=== PATIENT | female | born 1975 | race Caucasian/White ===

== ENCOUNTER 2019-09-17 20:04 | Inpatient (IN) | payer BC ==
[2019-09-17 21:06] LABS: Hematocrit 41 % (35-47); Hemoglobin 14.2 g/dL (12.0-16.0); Mean Corpuscular HGB Conc 35 g/dL (31-36); Mean Corpuscular Hemoglobin 33 pg (27-31); Mean Corpuscular Volume 94 fL (80-97); Red Blood Count 4.35 10^6 /uL (3.70-4.87); Red Cell Distribution Width 13 % (10-15); White Blood Count 6.1 10^3/uL (3.5-10.8)
[2019-09-17 21:08] LABS: ALT 13 U/L (7-52); Albumin 4.7 g/dL (3.2-5.2); Alkaline Phosphatase 39 U/L (34-104); BUN/Creatinine Ratio 11.8 (8-20); Blood Urea Nitrogen 9 mg/dL (6-24); CO2 Carbon Dioxide 24 mmol/L (22-32); Calcium 9.2 mg/dL (8.6-10.3); Chloride 106 mmol/L (101-111); EGFR Non-African American 83.5 (>60); Globulin 2.4 g/dL (2-4); Glucose 93 mg/dL (70-100); Sodium 137 mmol/L (135-145); Total Protein 7.1 g/dL (6.4-8.9)
[2019-09-17 21:10] LABS: Platelet Count 11 10^3/uL (150-450)
[2019-09-17 21:15] LABS: HCG Pregnancy < 0.60 mIU/mL
[2019-09-17 21:19] LABS: AST 19 U/L (13-39); Anion Gap 7 mmol/L (2-11)
[2019-09-17 21:22] LABS: ABS Eosinophils 0.1 10^3/ul (0-0.6); ABS Lymphocytes 1.9 10^3/ul (1.0-4.8); ABS Monocytes 0.4 10^3/ul (0-0.8); ABS Neutrophils 3.6 10^3/ul (1.5-7.7); Eosinophil % 1.9 %; Lymphocyte % 31.7 %; Nucleated Red Blood Cells % 0.1
[2019-09-17] MEDS ORDERED: IMMUNE GLOBULN IV ONE (23:47)
[2019-09-17] MEDS ORDERED: Acetaminophen TAB* 325 MG PO ONE (23:48)
[2019-09-17] MEDS ORDERED: Lactated Ringers 1000 ML Bag* 1,000 ML IV ONE (23:48)
[2019-09-17] MEDS ORDERED: Dexamethasone IV* 4 MG/ML 5 ML VIAL (20 MG) IVPB ONE (23:48)
[2019-09-18] MEDS ORDERED: diPHENhydraMINE IV* 50 MG/ML 1 ml VIAL (BENADRYL) IV ONE (00:14)
--- NOTE | 2019-09-18 02:28 | ED ---
Complex/Multi-Sys Presentation - HPI Summary HPI Summary: Patient is a 43 y/o F w/ Hx of ITP who presents to [facility] with spontaneous bruising and low platelet count. Patient had called her PCP about having noticed spontaneous bruising today, 09/17/19. She had bloodwork done, was called later in the day and informed that her platelet count was 8. Patient was subsequently sent to [facility] for evaluation. She reports that she has had an intermittent STREET since two days ago but denies dizziness and changes in vision. No recent trauma or injuries reported. Patient notes that she had ITP previously when she was placed on Sertaline and states that she had just recently started fluoxetine. On triage, pain is denied, nothing is noted to aggravate/alleviate Sx. Home medications and allergies are reviewed. - History Of Current Complaint Chief Complaint: EDGeneral Time Seen by Provider: 09/17/19 23:29 Hx Obtained From: Patient Onset/Duration: Still Present Timing: Constant Severity Currently: None - pain denied at present Location: Pain At: - head Aggravating Factor(s): nothing Alleviating Factor(s): nothing Associated Signs And Symptoms: Positive: Headache, Other - positive - spontaneous bruising; negative - changes in vision. Negative: Dizziness - Allergies/Home Medications Allergies/Adverse Reactions: Allergies Allergy/AdvReac Type Severity Reaction Status Date / Time ciprofloxacin [From Cipro] Allergy Hives Verified 09/17/19 20:06 Home Medications: Home Medications FLUoxetine CAP* [PROzac CAP*] 20 mg PO DAILY 09/18/19 [History Confirmed ] OXcarbazepine TAB(*) [Trileptal 300 mg TAB(*)] 300 mg PO BEDTIME 09/18/19 [ History Confirmed 09/18/19] PMH/Surg Hx/FS Hx/Imm Hx Endocrine/Hematology History: Reports: Other Endocrine/Hematological Disorders - ITP Sensory History: Denies: Hx Legally Blind Opthamlomology History: Denies: Hx Legally Blind EENT History: Denies: Hx Deafness Psychiatric History: Reports: Hx Depression Infectious Disease History: No Infectious Disease History: Denies: Traveled Outside the [place] in Last 30 Days - Family History Known Family History: Negative: Diabetes - Social History Alcohol Use: None Substance Use Type: Reports: None Smoking Status (MU): Never Smoked Tobacco Review of Systems ENT: Other - negative - changes in vision Skin: Other - positive - spontaneous bruising Neurological: Other - negative - dizziness Positive: Headache All Other Systems Reviewed And Are Negative: Yes Physical Exam - Summary Physical Exam Summary: Constitutional: Well-developed, Well-nourished, Alert. (-) Distressed Skin: Warm, Dry; there is a 3-4 circular hematoma with surrounding ecchymosis at the lateral aspect of the left thigh, a 4 cm healing ecchymosis distal to the lateral lower left leg, and scant petechiae across trunk and back HENT: Normocephalic; Atraumatic Eyes: Conjunctiva normal Neck: Musculoskeletal ROM normal neck. (-) JVD, (-) Stridor, (-) Tracheal deviation Cardio: Rhythm regular, rate normal, Heart sounds normal; Intact distal pulses; The pedal pulses are 2+ and symmetric. Radial pulses are 2+ and symmetric. Pulmonary/Chest wall: Effort normal. (-) Respiratory distress, (-) Wheezes, (-) Rales Abd: Soft, (-) tenderness, (-) Distension, (-) Guarding, (-) Rebound Musculoskeletal: (-) Edema Neuro: Alert, Oriented x3, no focal deficits, she is neurologically intact, GCS 15. Psych: Mood and affect Normal Triage Information Reviewed: Yes Vital Signs On Initial Exam: Initial Vitals Temp Pulse Resp BP Pulse Ox 96.7 F 84 18 136/89 98 09/17/19 20:07 09/17/19 20:07 09/17/19 20:07 09/17/19 20:07 09/17/19 20:07 Vital Signs Reviewed: Yes Procedures - Sedation Patient Received Moderate/Deep Sedation with Procedure: No Diagnostics - Vital Signs Vital Signs Temp Pulse Resp BP Pulse Ox 09/18/19 02:08 98.2 F 09/18/19 02:05 75 20 113/78 97 09/18/19 02:00 78 20 97 09/18/19 01:51 97.9 F 09/18/19 01:50 72 20 114/68 97 09/18/19 01:35 81 15 114/70 96 09/18/19 01:34 98.4 F 09/18/19 01:21 98.1 F 09/18/19 01:20 73 20 119/74 99 09/18/19 01:05 78 20 115/77 100 10/31/19 01:00 98.2 F 72 19 98 09/18/19 00:38 75 15 124/100 100 09/18/19 00:23 65 19 98 09/18/19 00:08 17 118/85 09/18/19 00:00 70 15 98 09/17/19 23:38 62 19 111/72 99 09/17/19 23:10 71 19 98 09/17/19 23:08 80 22 116/89 99 09/17/19 22:13 97.9 F 77 18 133/89 98 09/17/19 20:07 96.7 F 84 18 136/89 98 - Laboratory Lab Results: Lab Results 09/17/19 09/17/19 09/17/19 Range/Units 20:38 20:38 20:38 WBC 6.1 (3.5-10.8) 10^3/uL RBC 4.35 (3.70-4.87) 10^6 /uL Hgb 14.2 (12.0-16.0) g/dL Hct 41 (35-47) % MCV 94 (80-97) fL MCH 33 H (27-31) pg MCHC 35 (31-36) g/dL RDW 13 (10-15) % Plt Count 11 L* (150-450) 10^3/uL MPV 9.0 (7.4-10.4) fL Neut % (Auto) 58.6 % Lymph % (Auto) 31.7 % [place] % (Auto) 7.2 % Eos % (Auto) 1.9 % Baso % (Auto) 0.6 % Absolute Neuts (auto) 3.6 (1.5-7.7) 10^3/ul Absolute Lymphs (auto) 1.9 (1.0-4.8) 10^3/ul Absolute Monos (auto) 0.4 (0-0.8) 10^3/ul Absolute Eos (auto) 0.1 (0-0.6) 10^3/ul Absolute Basos (auto) 0.0 (0-0.2) 10^3/ul Absolute Nucleated RBC 0.0 10^3/ul Nucleated RBC % 0.1 Hem Pathologist Commnt Pending Sodium 137 (135-145) mmol/L Potassium 4.0 (3.5-5.0) mmol/L Chloride 106 (101-111) mmol/L Carbon Dioxide 24 (22-32) mmol/L Anion Gap 7 (2-11) mmol/L BUN 9 (6-24) mg/dL Creatinine 0.76 (0.51-0.95) mg/dL Est GFR ( Amer) 101.0 (>60) Est GFR (Non-Af Amer) 83.5 (>60) BUN/Creatinine Ratio 11.8 (8-20) Glucose 93 (70-100) mg/dL Calcium 9.2 (8.6-10.3) mg/dL Total Bilirubin 0.40 (0.2-1.0) mg/dL AST 19 (13-39) U/L ALT 13 (7-52) U/L Alkaline Phosphatase 39 (34-104) U/L Total Protein 7.1 (6.4-8.9) g/dL Albumin 4.7 (3.2-5.2) g/dL Globulin 2.4 (2-4) g/dL Albumin/Globulin Ratio 2.0 (1-3) Beta HCG, Quant < 0.60 mIU/mL Blood Type A Positive Antibody Screen Negative Result Diagrams: 09/17/19 20:38 09/17/19 20:38 Lab Statement: Any lab studies that have been ordered have been reviewed, and results considered in the medical decision making process. Complex Multi-Symp Course/Dx Course Of Treatment: Patient is a 43 y/o F w/ Hx of ITP who presents to [facility] with spontaneous bruising and low platelet count. Patient had called her PCP about having noticed spontaneous bruising today, 09/17/19. She had bloodwork done, was called later in the day and informed that her platelet count was 8. Patient was subsequently sent to [facility] for evaluation. She reports that she has had an intermittent STREET since two days ago but denies dizziness and changes in vision. No recent trauma or injuries reported. Skin: Warm, Dry; there is a 3-4 circular hematoma with surrounding ecchymosis at the lateral aspect of the left thigh, a 4 cm healing ecchymosis distal to the lateral lower left leg, and scant petechiae across trunk and back. Neuro: Alert, Oriented x3, no focal deficits, she is neurologically intact, GCS 15. Bloodwork was obtained in ED. Plt count was 11. Patients case was discussed with Dr. Tejeda, who recommended IG IV and decadron. During ED course, patient received IG 60 gm in IV, 600 mls @ 18 mls/hr, Tylenol 975 mg PO, Decadron 40 mg IVPB, Benadryl 25 mg IV, lactated ringers 1 L. Patient's case was discussed with Dr. Keene, Dr. Keene accepts for admission. - Diagnoses Provider Diagnoses: Acute ITP - Physician Notifications Discussed Care Of Patient With: Rachel Keene Time Discussed With Above Provider: 01:39 Instructed by Provider To: Other - 2338 - Patients case was discussed with Dr. Tejeda, who recommended IG IV and decadron. 0139 - Patient's case was discussed with Dr. Keene, Dr. Keene accepts for admission. Discharge ED - Sign-Out/Discharge Documenting (check all that apply): Patient Departure - admit - Discharge Plan Condition: Fair Disposition: ADMITTED TO [facility] - Billing Disposition and Condition Condition: FAIR Disposition: Admitted to [facility] - Attestation Statements Document Initiated by Leahibe: Yes Documenting Scribe: KEYLA PRIDE Provider For Whom Ginae is Documenting (Include Credential): MATHEUS NGUYEN MD Scribe Attestation: IKEYLA, scribed for MATHEUS NGUYEN MD on 09/18/19 at 0728. Scribe Documentation Reviewed: Yes Provider Attestation: The documentation as recorded by the KEYLA bañuelos accurately reflects the service I personally performed and the decisions made by me, MATHEUS NGUYEN MD Status of Scribe Document: Viewed
--- NOTE | 2019-09-18 05:47 | HP ---
CC: Dr. Dukes; Dr. Tejeda * HISTORY AND PHYSICAL: DATE OF ADMISSION: 09/18/19 PRIMARY CARE PROVIDER: Dr. Dukes. STRIP CATCHER: Dr. Tejeda. CHIEF COMPLAINT: Left thigh bruise. HISTORY OF PRESENT ILLNESS: Ms. Ramesh is a 43-year-old female, who has a history of ITP approximately 1 year ago, who at approximately 6:30 p.m. on the night prior to admission noted a bruise on her left posterior thigh. She then around 7 p.m. noticed petechiae starting to pop up on her limbs. She recognized the constellation of findings and felt these were similar to how she presented last year when she was diagnosed with ITP and presented to the emergency room. In the ER, the patient had a bloody bowel movement. The patient also noted that she was bleeding from her oral mucosa. Of note, the patient was started back on fluoxetine approximately 4 weeks ago. Last year, there was concern that fluoxetine was a cause of her ITP as it had been started just 3 weeks prior. She was told to stay off of this; however, that did not happen. PAST MEDICAL HISTORY: 1. ITP. 2. Depression. 3. Migraines. PAST SURGICAL HISTORY: 1. Right shoulder repair. 2. Tonsillectomy. MEDICATIONS: 1. Fluoxetine 20 mg p.o. daily. 2. Trileptal 300 mg p.o. at bedtime. ALLERGIES: CIPRO. FAMILY HISTORY: Dad is living; he is 64 and healthy. Mom is living; she is 64 and has hypertension and hypothyroidism. The patient has 2 children, one of whom has MS. SOCIAL HISTORY: The patient does not smoke. She drinks alcohol on occasion. She previously worked as an [employer] but currently is staying home with her grand baby. She is . She has 2 children. REVIEW OF SYSTEMS: The patient admits to chills and poor appetite. She states that she has felt as if her heart has been pounding over the last couple of days. She admits to cough and nausea. All of these symptoms were present last year when she developed the ITP. She has no shortness of breath. She has no abdominal pain. She has no diarrhea or constipation as above; however, she did have a bloody bowel movement. No focal weakness or sensory loss. No hematuria. No dysuria. No sudden changes in vision. No dysphagia. No joint pains or muscle pains out of the ordinary. She did note the petechial rash. No anxiety or depression acutely. PHYSICAL EXAMINATION GENERAL: The patient is a well-developed middle-aged female seen sitting up on the stretcher, in no acute distress. VITAL SIGNS: Blood pressure 109/71, pulse 71, respirations 21, temp 98.7, O2 sat 97% on room air. HEENT: Pupils are equal and round. Extraocular muscles are intact. Oropharynx is moist. There is a small submucosal hematoma on the right buccal surface. NECK: There is no submandibular, cervical or supraclavicular adenopathy. PULMONARY: Lungs are clear to auscultation bilaterally. CARDIAC: Normal S1, S2. Regular rate and rhythm. I do not appreciate any murmurs. ABDOMEN: Bowel sounds present. Abdomen is soft, nontender, nondistended. MUSCULOSKELETAL: The patient moves all 4 extremities symmetrically. SKIN: Warm and dry. She has a deep purple hard bruise through the left posterior thigh. This is about half-dollar sized. There are other scattered fainter bruises on the bilateral legs. There is a petechial rash noted scattered across the patient's body. NEURO: Cranial nerves II through XII are grossly intact. Sensation is intact to light touch throughout. Strength is 5/5 and symmetric in both upper and lower extremities bilaterally. PSYCH: The patient is alert. She is oriented x3. Affect appears appropriate. LABORATORY DATA: WBC 6.1, hemoglobin 14.2, hematocrit 41, platelets 11. Sodium 137, potassium 4.0, chloride 106, CO2 of 24, BUN 9, creatinine 0.76, glucose 93, calcium 9.2. Bilirubin 0.4, AST 19, ALT 13, alk phos 39. Albumin 4.7. ASSESSMENT AND PLAN: Ms. Ramesh is a 43-year-old female, who had an episode of immune thrombocytopenic purpura approximately 1 year ago, who presented to the emergency room with complaints of bruising on her legs and petechial rash. 1. Acute immune thrombocytopenic purpura - possibly drug induced. The patient last year developed acute immune thrombocytopenic purpura approximately 3 weeks after initiating fluoxetine. It was Dr. Tejeda's recommendation that she stay off this medication indefinitely. For some reason, this was restarted about 4 weeks ago. I am suspicious that this may be the precipitant to her developing immune thrombocytopenic purpura. She will need to remain off of fluoxetine. Dr. Lowry in the emergency room spoke with Dr. Tejeda, who recommended administering Decadron 40 mg IV daily x4 days and IVIG 1 g/kg x2 doses 24 hours apart. The patient has started these treatments in the emergency room. Followup CBC will be obtained at 6 a.m. 2. Depression. The patient is being taken off her fluoxetine. I am not going to restart any antidepressants at this time 3. Migraines. I am going to hold the patient's Trileptal. 4. DVT prophylaxis. According to the Adult Thrombosis Prophylaxis Risk Factor Assessment Guide, the patient has a total risk factor score of 1, making her low risk. Ambulation will be utilized as DVT prophylaxis. 5. Code status is full. TIME SPENT: Fifty-five minutes were spent admitting this patient. [id number]/[facility] #: [id number] MTDD
[2019-09-18 09:51] LABS: Hematocrit 39 % (35-47); Hemoglobin 13.1 g/dL (12.0-16.0); Mean Corpuscular HGB Conc 34 g/dL (31-36); Mean Corpuscular Hemoglobin 32 pg (27-31); Mean Corpuscular Volume 95 fL (80-97); Platelet Count < 3 10^3/uL (150-450); Red Blood Count 4.11 10^6 /uL (3.70-4.87); Red Cell Distribution Width 13 % (10-15); White Blood Count 4.3 10^3/uL (3.5-10.8)
--- NOTE | 2019-09-18 10:19 | PN ---
Progress Note - Progress Note Date of Service: 09/18/19 SOAP: Subjective: []Admitted overnight with recurrent ITP in the setting of resuming Fluoxetine. Started on IVIg and IV Dex. Feeling fine this AM. Did have a bloody nose overnight and small amt. of blood when wiped this AM but not active bleeding stool or urine. Petechaie better. Medications: Acetaminophen (Tylenol Tab*) 650 mg PO Q4H PRN PRN Reason: PAIN - MILD Immune Globulin 60 gm/ IV (Solution) 600 mls @ 18 mls/hr IV ONCE ONE; Protocol Stop: 09/19/19 09:06 Last Admin: 09/18/19 01:01 Dose: 18 mls/hr Immune Globulin 60 gm/ IV (Solution) 600 mls @ 0 mls/hr IV ONCE ONE; Protocol Stop: 09/19/19 01:01 Dexamethasone Sodium Phosphate (40 mg/ Sodium Chloride) 260 mls @ 260 mls/hr IVPB 2100 KIMO Stop: 09/20/19 21:59 Objective: [] Vital Signs Temp Pulse Resp BP Pulse Ox 97.7 F 76 16 109/67 98 09/18/19 08:10 09/18/19 08:10 09/18/19 08:10 09/18/19 08:10 09/18/19 08:10 A&Ox3, EOMI, grossly non-focal HRR, S1S2 LS clear bilat throughout with even and non-labored resp. +BS, soft and non-tender +PP=bilat., no edema Scattered petechaie, minimal Left upper thigh with ~3 cm dark purple bruise Laboratory Results - last 24 hr 09/17/19 09/17/19 09/17/19 20:38 20:38 20:38 WBC 6.1 RBC 4.35 Hgb 14.2 Hct 41 MCV 94 MCH 33 H MCHC 35 RDW 13 Plt Count 11 L* MPV 9.0 Neut % (Auto) 58.6 Lymph % (Auto) 31.7 [place] % (Auto) 7.2 Eos % (Auto) 1.9 Baso % (Auto) 0.6 Absolute Neuts (auto) 3.6 Absolute Lymphs (auto) 1.9 Absolute Monos (auto) 0.4 Absolute Eos (auto) 0.1 Absolute Basos (auto) 0.0 Absolute Nucleated RBC 0.0 Nucleated RBC % 0.1 Hem Pathologist Commnt Sodium 137 Potassium 4.0 Chloride 106 Carbon Dioxide 24 Anion Gap 7 BUN 9 Creatinine 0.76 Est GFR ( Amer) 101.0 Est GFR (Non-Af Amer) 83.5 BUN/Creatinine Ratio 11.8 Glucose 93 Calcium 9.2 Total Bilirubin 0.40 AST 19 ALT 13 Alkaline Phosphatase 39 Total Protein 7.1 Albumin 4.7 Globulin 2.4 Albumin/Globulin Ratio 2.0 Beta HCG, Quant < 0.60 Blood Type A Positive Antibody Screen Negative 09/18/19 08:48 WBC 4.3 RBC 4.11 Hgb 13.1 Hct 39 MCV 95 MCH 32 H MCHC 34 RDW 13 Plt Count < 3 L* D MPV Neut % (Auto) Lymph % (Auto) [place] % (Auto) Eos % (Auto) Baso % (Auto) Absolute Neuts (auto) Absolute Lymphs (auto) Absolute Monos (auto) Absolute Eos (auto) Absolute Basos (auto) Absolute Nucleated RBC Nucleated RBC % Hem Pathologist Commnt Sodium Potassium Chloride Carbon Dioxide Anion Gap BUN Creatinine Est GFR ( Amer) Est GFR (Non-Af Amer) BUN/Creatinine Ratio Glucose Calcium Total Bilirubin AST ALT Alkaline Phosphatase Total Protein Albumin Globulin Albumin/Globulin Ratio Beta HCG, Quant Blood Type Antibody Screen Assessment: []43 yo female with recurrent ITP now receiving IVIg and dex., expect response over next 24 hours. Plan: []- IVIg 1 g/kg x2 q24hrs (day 2 tonight) - IV Dex 40 g x4 days (day 2 of 4 today) - repeat H&H this afternoon d/t bloody stool yesterday - CBC in AM
[2019-09-18] MEDS: Acetaminophen TAB* 325 MG PO PRN ×2 (13:55→20:32)
[2019-09-18 15:05] LABS: Hematocrit 37 % (35-47); Hemoglobin 12.4 g/dL (12.0-16.0)
[2019-09-18 18:48] LABS: Mean Platelet Volume 11.1 fL (7.4-10.4); Platelet Count 4 10^3/uL (150-450)
[2019-09-18] MEDS ORDERED: diPHENhydraMINE PO* 50 MG PO ONE (18:56)
[2019-09-18] MEDS ORDERED: diPHENhydraMINE PO* 25 MG PO ONE (18:56)
[2019-09-18] MEDS: OXcarbazepine TAB(*) 300 MG PO SCH (20:32)
[2019-09-18] MEDS ORDERED: NS 0.9% IVPB SCH (21:00)
[2019-09-18] MEDS ORDERED: DEXAMETHASONE IVPB SCH (21:00)
[2019-09-18] MEDS ORDERED: IMMUNE GLOBULIN 10 GM/100 ML IV ONE (23:00)
[2019-09-18] MEDS ORDERED: Dexamethasone IV* 4 MG/ML 5 ML VIAL (20 MG) IVPB SCH (23:45)
[2019-09-19] MEDS ORDERED: IMMUNE GLOBULN IV ONE (01:00)
[2019-09-19] MEDS: Acetaminophen TAB* 325 MG PO PRN ×2 (03:32→12:41)
[2019-09-19 05:04] LABS: Hematocrit 34 % (35-47); Hemoglobin 11.4 g/dL (12.0-16.0); Mean Corpuscular HGB Conc 34 g/dL (31-36); Mean Corpuscular Hemoglobin 32 pg (27-31); Mean Corpuscular Volume 95 fL (80-97); Red Blood Count 3.59 10^6 /uL (3.70-4.87); Red Cell Distribution Width 13 % (10-15); White Blood Count 8.3 10^3/uL (3.5-10.8)
[2019-09-19 05:32] LABS: ABS Lymphocytes 0.4 10^3/ul (1.0-4.8); ABS Monocytes 0.2 10^3/ul (0-0.8); ABS Neutrophils 8.7 10^3/ul (1.5-7.7); Lymphocyte % 4.8 %; Mean Platelet Volume 9.7 fL (7.4-10.4); Nucleated Red Blood Cells % 0.1; Platelet Count 4 10^3/uL (150-450)
--- NOTE | 2019-09-19 08:13 | PN ---
Progress Note - Progress Note Date of Service: 09/19/19 SOAP: Subjective: []Still nose bleeds,still bruising. Last time plts alexey on D3. Tolerated IVIG. Had STREET last night, BL frontal, no associated symptoms. Resolved with Tylenol and Dex. Had 1 U Plts last night, no effect. blood in stool. Decrease in plts on both events occurred one week after starting SSRI Acetaminophen (Tylenol Tab*) 650 mg PO Q4H PRN PRN Reason: PAIN - MILD Last Admin: 09/19/19 03:32 Dose: 650 mg Immune Globulin 60 gm/ IV (Solution) 600 mls @ 18 mls/hr IV ONCE ONE; Protocol Stop: 09/19/19 09:06 Last Admin: 09/18/19 01:01 Dose: 18 mls/hr Dexamethasone Sodium Phosphate (40 mg/ Sodium Chloride) 260 mls @ 260 mls/hr IVPB 2100 KIMO Stop: 09/20/19 21:59 Last Admin: 09/18/19 20:32 Dose: 260 mls/hr Immune Globulin (Gammagard Liquid 10% - 10 Gm) 600 mls @ 31 mls/hr IV ONCE ONE ; Protocol Stop: 09/19/19 18:21 Last Admin: 09/19/19 03:26 Dose: 31 mls/hr Oxcarbazepine (Trileptal Tab(*)) 300 mg PO BEDTIME KIMO Last Admin: 09/18/19 20:32 Dose: 300 mg Objective: [] Vital Signs Temp Pulse Resp BP Pulse Ox 97.7 F 77 16 121/63 98 09/19/19 06:17 09/19/19 06:17 09/19/19 06:17 09/19/19 06:17 09/19/19 06:17 HEENT: OM moist, no blisters, cannot see nose bleed Neuro: CN 2-12 intact, AAOx3, normal speach, strength 5/5 CTA Tchy, RRR +BS +bruise on L hip no TYE Plts 4 Hgb 11.4, decreased Assessment: []43 yo female with recurrent ITP now receiving IVIg and dex. It is possible that SSRI through interaction with plts is trigger for ITP. Discussed therapy, expect rise in plts next 24 hrs, if not change can consider Nplate. Also discussed splenectomy, Rituximab as possibility after recovery. Plan: []- IVIg 1 g/kg x2 q24hrs completed 2. Dex 40 G IV x 4, day 3 tomorrow. Move infusion to [address] head 4. CBC in am 5. Will need psychiatrist input for treating depression w/o serotonin agent.
[2019-09-19] MEDS: OXcarbazepine TAB(*) 300 MG PO SCH (21:23)
[2019-09-20 07:16] LABS: ABS Lymphocytes 2.5 10^3/ul (1.0-4.8); ABS Monocytes 0.5 10^3/ul (0-0.8); ABS Neutrophils 4.3 10^3/ul (1.5-7.7); Eosinophil % 0.4 %; Hematocrit 33 % (35-47); Hemoglobin 11.7 g/dL (12.0-16.0); Mean Corpuscular HGB Conc 35 g/dL (31-36); Mean Corpuscular Hemoglobin 33 pg (27-31); Mean Corpuscular Volume 93 fL (80-97); Mean Platelet Volume 9.3 fL (7.4-10.4); Nucleated Red Blood Cells % 0.1; Platelet Count 3 10^3/uL (150-450); Red Blood Count 3.58 10^6 /uL (3.70-4.87); Red Cell Distribution Width 13 % (10-15); White Blood Count 7.3 10^3/uL (3.5-10.8)
[2019-09-20] MEDS ORDERED: Dexamethasone IV* 4 MG/ML 5 ML VIAL (20 MG) ONE (07:59)
[2019-09-20] MEDS ORDERED: Dexamethasone IV* 40 MG in NS 0.9% 50 ML* 50 ML IVPB SCH (09:00)
[2019-09-20] MEDS: Acetaminophen TAB* 325 MG PO PRN ×2 (09:01→20:26)
--- NOTE | 2019-09-20 16:10 | PN ---
Progress Note - Progress Note Date of Service: 09/20/19 SOAP: Subjective: [She is very anxious this morning. She and her are questioning whether transfer to a tertiary facility is necessary. She was able to sleep last night. She continues to have nose, mucosal bleed, blood in her urine and stool. ] Objective: [ Vital Signs: Temp Pulse Resp BP Pulse Ox 98 F 74 16 112/68 100 09/20/19 13:47 09/20/19 13:47 09/20/19 13:47 09/20/19 13:47 09/20/19 13:47 Exam: Gen: Anxious, but otherwise well appearing 43 yo female in NAD HEENT: MMM CV: RRR, no m/r/g Resp: CTA, no w/c/r Abd: soft and nonTTP Ext: no edema Skin: petechial rash and areas of ecchymosis] Assessment: [This is a 43 yo female with recurrent ITP. She is now day 3 of IVIG and dexamethasone without a response as of yet. ] Plan: [1. ITP - received 2 doses of IVIG and today is day 3 of dexamethasone - transfuse 1U plts today as she is actively bleeding and assess response - if no rise in plts by tomorrow will start with Nplate 2. Anxiety - exacerbated by high dose steroids - patient declined ativan - discussed her sources of anxiety in detail and assured her that she is receiving the standard in care for management of ITP Dispo: cont inpatient care ]
[2019-09-20] MEDS: OXcarbazepine TAB(*) 300 MG PO SCH (20:23)
[2019-09-20 20:34] LABS: Mean Platelet Volume 12.1 fL (7.4-10.4)
[2019-09-20 20:35] LABS: Platelet Count 3 10^3/uL (150-450)
[2019-09-21] MEDS: Acetaminophen TAB* 325 MG PO PRN ×2 (06:25→20:39)
[2019-09-21 06:54] LABS: ABS Lymphocytes 1.4 10^3/ul (1.0-4.8); ABS Monocytes 0.8 10^3/ul (0-0.8); ABS Neutrophils 8.2 10^3/ul (1.5-7.7); Hematocrit 34 % (35-47); Lymphocyte % 13.6 %; Mean Corpuscular HGB Conc 35 g/dL (31-36); Mean Corpuscular Hemoglobin 33 pg (27-31); Mean Corpuscular Volume 92 fL (80-97); Mean Platelet Volume 12.3 fL (7.4-10.4); Nucleated Red Blood Cells % 0.1; Red Blood Count 3.71 10^6 /uL (3.70-4.87); Red Cell Distribution Width 12 % (10-15); White Blood Count 10.5 10^3/uL (3.5-10.8)
[2019-09-21 07:04] LABS: Platelet Count 3 10^3/uL (150-450)
[2019-09-21] MEDS ORDERED: Dexamethasone IV* 40 MG in NS 0.9% 50 ML* 50 ML IVPB SCH (09:00)
[2019-09-21] MEDS ORDERED: ROMIPLOSTIM 250 MCG/0.5 ML SUBCUT ONE (10:00)
--- NOTE | 2019-09-21 10:02 | PN ---
Progress Note - Progress Note Date of Service: 09/21/19 SOAP: Subjective: [Feeling well. Developed vaginal bleeding, her menstrual period is generally light and would be due next week. Continues to see blood in her urine and stool with active nose bleed.] Objective: [ Vital Signs: Temp Pulse Resp BP Pulse Ox 98.0 F 91 20 138/85 98 09/21/19 07:23 09/21/19 07:23 09/21/19 07:23 09/21/19 07:23 09/21/19 07:23 Acetaminophen (Tylenol Tab*) 650 mg PO Q4H PRN PRN Reason: PAIN - MILD Last Admin: 09/21/19 06:25 Dose: 650 mg Dexamethasone Sodium Phosphate (40 mg/ Sodium Chloride) 60 mls @ 120 mls/hr IVPB DAILY KIMO Stop: 09/22/19 08:59 Last Admin: 09/21/19 09:50 Dose: 120 mls/hr Oxcarbazepine (Trileptal Tab(*)) 300 mg PO BEDTIME KIMO Last Admin: 09/20/19 20:23 Dose: 300 mg Romiplostim (Nplate*) 65 mcg SUBCUT ONCE ONE Stop: 09/21/19 10:01 Laboratory Results - last 24 hr 09/20/19 09/21/19 20:03 05:57 WBC 10.5 RBC 3.71 Hgb 12.0 Hct 34 L MCV 92 MCH 33 H MCHC 35 RDW 12 Plt Count 3 L* 3 L* MPV 12.1 H 12.3 H Neut % (Auto) 78.6 Lymph % (Auto) 13.6 [place] % (Auto) 7.7 Eos % (Auto) 0.0 Baso % (Auto) 0.1 Absolute Neuts (auto) 8.2 H Absolute Lymphs (auto) 1.4 Absolute Monos (auto) 0.8 Absolute Eos (auto) 0.0 Absolute Basos (auto) 0.0 Absolute Nucleated RBC 0.0 Nucleated RBC % 0.1 Exam: Gen: Relatively well appearing 43 yo female in NAD HEENT: MMM CV: RRR, no m/r/g Resp: CTA, no w/c/r Abd: soft and nonTTP Ext: no edema Skin: petechial rash and areas of ecchymosis which have no progressed since yesterday's exam Assessment: [This is a 43 yo female with recurrent ITP. She is now day 4 of IVIG and dexamethasone without a response as of yet. ] Plan: [1. ITP - received 2 doses of IVIG and today is day 4 of dexamethasone - she has not responded to platelets given the last 2 days, transfuse an additional 1U plts today as she is actively bleeding (Hgb has been stable over the last few days) - start Nplate today at 1mcg/kg SQ weekly, titrate dose based on response 2. Anxiety, improved today - exacerbated by high dose steroids Dispo: cont inpatient care until plts >10K]
[2019-09-21] MEDS: Saline NASAL DROPS 0.65%* 1 DROP BTL BOTH NARES PRN (15:57)
[2019-09-21 17:28] LABS: Mean Platelet Volume 7.8 fL (7.4-10.4); Platelet Count 18 10^3/uL (150-450)
[2019-09-21] MEDS: OXcarbazepine TAB(*) 300 MG PO SCH (20:39)
[2019-09-22 06:31] LABS: Hematocrit 33 % (35-47); Hemoglobin 11.8 g/dL (12.0-16.0); Mean Corpuscular HGB Conc 36 g/dL (31-36); Mean Corpuscular Hemoglobin 33 pg (27-31); Mean Corpuscular Volume 92 fL (80-97); Mean Platelet Volume 10.9 fL (7.4-10.4); Platelet Count 7 10^3/uL (150-450); Red Blood Count 3.59 10^6 /uL (3.70-4.87); Red Cell Distribution Width 12 % (10-15); White Blood Count 9.7 10^3/uL (3.5-10.8)
[2019-09-22] MEDS: Acetaminophen TAB* 325 MG PO PRN (07:59)
[2019-09-22] MEDS: Saline NASAL DROPS 0.65%* 1 DROP BTL BOTH NARES PRN (08:10)
--- NOTE | 2019-09-22 14:54 | PN ---
Progress Note - Progress Note Date of Service: 09/22/19 SOAP: Subjective: []Better. No additional bleeding. Nose bleed stopped, no new bruising. Fatigued. Acetaminophen (Tylenol Tab*) 650 mg PO Q4H PRN PRN Reason: PAIN - MILD Last Admin: 09/22/19 07:59 Dose: 650 mg Oxcarbazepine (Trileptal Tab(*)) 300 mg PO BEDTIME KIMO Last Admin: 09/21/19 20:39 Dose: 300 mg Sodium Chloride (Sodium Chloride 0.65% Nasal Drops*) 1 drop BOTH NARES Q2H PRN PRN Reason: nasal dryness Last Admin: 09/22/19 08:10 Dose: 1 spray Objective: [] Vital Signs Temp Pulse Resp BP Pulse Ox 97.5 F 71 18 113/69 99 09/22/19 11:15 09/22/19 11:15 09/22/19 11:15 09/22/19 11:15 09/22/19 11:15 Exam: Gen: Relatively well appearing 43 yo female in NAD HEENT: MMM, no epistaxis. CV: RRR, no m/r/g Resp: CTA, no w/c/r Abd: soft and nonTTP Ext: no edema Skin: petechial rash and areas of ecchymosis, better then Sunday Assessment: [This is a 43 yo female with recurrent ITP. Rx IVIG 2 G/kg and Dex 40 IV qd x 4. Given Nplate 65 mcg x 1. Plts increased today to 7,000, reflection of IVIG and Dex, to early for Nplate. Plan: [1. ITP - No plts today - Re-check tomorrow and d/c for plts > 10,000 - D/w Dr. Tejeda tomorrow, plans for additional therapy. 2. Anxiety, improved today - exacerbated by high dose steroids
[2019-09-22] MEDS: OXcarbazepine TAB(*) 300 MG PO SCH (21:45)
[2019-09-23] MEDS: Acetaminophen TAB* 325 MG PO PRN (06:10)
[2019-09-23 06:35] LABS: Hematocrit 36 % (35-47); Hemoglobin 12.8 g/dL (12.0-16.0); Mean Corpuscular HGB Conc 36 g/dL (31-36); Mean Corpuscular Hemoglobin 33 pg (27-31); Mean Corpuscular Volume 91 fL (80-97); Mean Platelet Volume 8.8 fL (7.4-10.4); Platelet Count 19 10^3/uL (150-450); Red Blood Count 3.93 10^6 /uL (3.70-4.87); Red Cell Distribution Width 12 % (10-15); White Blood Count 7.5 10^3/uL (3.5-10.8)
[2019-09-23 09:34] VITALS: BP 116/80
== END 2019-09-23 12:00 | disposition home or self-care (01) | DRG 661 ==
LOC: ED 20:04 → MED 09-18 03:20
PROVIDERS: ADMIT Hospitalist; ATTEND Internal Medicine Hematology & Oncology
PROC: 30233S1 Transfusion of Nonautologous Globulin into Peripheral Vein, Percutaneous Approach (ICD-10-PCS; 2019-09-18)
PROC: 30233R1 Transfusion of Nonautologous Platelets into Peripheral Vein, Percutaneous Approach (ICD-10-PCS; principal; 2019-09-19)
DX: D69.3 Immune thrombocytopenic purpura (principal); G43.909 Migraine, unspecified, not intractable, without status migrainosus; F41.9 Anxiety disorder, unspecified; F32.9 Major depressive disorder, single episode, unspecified; Z72.89 Other problems related to lifestyle; Z88.1 Allergy status to other antibiotic agents
CPT/HCPCS: 36415; 70450; 80053; 84702; 85014; 85018; 85025; 85027; 85049; 85060; 86850; 86900; 86901; 90283; 99232; 99233; 99285; A9270-GY; J1100; J1200; J1459; J1569; J2796; P9035

== ENCOUNTER 2023-11-09 17:53 | Inpatient (IN) ==
[2023-11-09] MEDS ORDERED: Acetaminophen IV 1 GM/100ML 1,000 MG/100 ML BAG IV ONE (19:40)
[2023-11-09] MEDS ORDERED: Morphine 4 MG/ML VIAL (1 ml) IV ONE (21:24)
[2023-11-09] MEDS ORDERED: Labetalol IV 5 MG/ML 20 ml VIAL IV PUSH PRN (21:55)
[2023-11-09] MEDS: Pantoprazole VIAL 40 MG VIAL IV SCH (23:34)
[2023-11-10] MEDS: Morphine 2 MG/ML SYRINGE IV PRN ×2 (02:41→05:37)
[2023-11-10] MEDS: Acetaminophen IV 1 GM/100ML 1,000 MG/100 ML BAG IV SCH ×4 (02:51→19:57)
[2023-11-10 05:50] LABS: ABS Eosinophils 0.3 10^3/uL (0.0-0.5); ABS Lymphocytes 1.8 10^3/uL (1.0-4.8); ABS Monocytes 0.4 10^3/uL (0.0-0.9); ABS Neutrophils 2.5 10^3/uL (1.5-7.6); ABS Nucleated RBC 0.01 10^3/ul; Eosinophil % 5.1 %; Hematocrit 38.1 % (35-45); Hemoglobin 12.8 g/dL (11.5-14.3); Lymphocyte % 36.9 %; Mean Corpuscular Hemoglobin 31.2 pg (27-33); Mean Corpuscular Hgb Conc 33.6 g/dL (31-36); Mean Platelet Volume 8.6 fL (7.5-11.2); Nucleated Red Blood Cells % 0.2 %/100WBC (0.0-0.8); Platelet Count 135 10^3/uL (150-450); Red Cell Distribution Width 12.8 % (12-17)
[2023-11-10 06:08] LABS: Albumin 3.5 g/dL (3.2-5.2); Albumin/Globulin Ratio 1.7 (1-3); Calcium 7.3 mg/dL (8.6-10.3); Creatinine, Serum 0.58 mg/dL (0.51-0.95); Globulin 2.1 g/dL (2-4); HDL Cholesterol 48.8 mg/dL; Magnesium 1.8 mg/dL (1.9-2.7); Potassium 3.6 mmol/L (3.5-5.0); Total Bilirubin 0.3 mg/dL (0.2-1.0); Total Protein 5.6 g/dL (6.4-8.9); eGFR CKD-EPI 112.3 (>60)
[2023-11-10] MEDS ORDERED: Lactated Ringers 1000 ml BAG 500 ML IV ONE (07:59)
[2023-11-10] MEDS: Pantoprazole VIAL 40 MG VIAL IV SCH (08:05)
[2023-11-10] MEDS: Cholecalciferol (VIT D3) 1,000 unit TAB PO SCH (08:29)
[2023-11-10] MEDS: Multivitamins/Minerals TAB PO SCH (08:29)
[2023-11-10] MEDS ORDERED: Ondansetron 4 mg VIAL 2 MG/ML 2 ml VIAL IV PRN (11:42)
[2023-11-10] MEDS ORDERED: Ondansetron 4 mg VIAL 2 MG/ML 2 ml VIAL ONE (11:44)
[2023-11-10 12:15] LABS: ABS Eosinophils 0.1 10^3/uL (0.0-0.5); ABS Lymphocytes 1.5 10^3/uL (1.0-4.8); ABS Monocytes 0.4 10^3/uL (0.0-0.9); ABS Neutrophils 6.2 10^3/uL (1.5-7.6); Eosinophil % 1.2 %; Hematocrit 42.1 % (35-45); Hemoglobin 14.1 g/dL (11.5-14.3); Lymphocyte % 18.1 %; Mean Corpuscular Hemoglobin 31.1 pg (27-33); Mean Corpuscular Hgb Conc 33.5 g/dL (31-36); Mean Corpuscular Volume 92.9 fL (80-97); Mean Platelet Volume 8.2 fL (7.5-11.2); Platelet Count 133 10^3/uL (150-450); Red Blood Count 4.53 10^6/uL (3.63-4.92); Red Cell Distribution Width 12.9 % (12-17); White Blood Count 8.3 10^3/uL (3.8-11.8)
[2023-11-11] MEDS: Acetaminophen IV 1 GM/100ML 1,000 MG/100 ML BAG IV SCH ×3 (01:57→07:35)
[2023-11-11 04:16] LABS: ABS Eosinophils 0.3 10^3/uL (0.0-0.5); ABS Monocytes 0.5 10^3/uL (0.0-0.9); ABS Neutrophils 4.6 10^3/uL (1.5-7.6); Eosinophil % 4.1 %; Hematocrit 38.8 % (35-45); Hemoglobin 13.1 g/dL (11.5-14.3); Lymphocyte % 26.8 %; Mean Corpuscular Hemoglobin 31.1 pg (27-33); Mean Corpuscular Hgb Conc 33.7 g/dL (31-36); Mean Corpuscular Volume 92.3 fL (80-97); Mean Platelet Volume 8.2 fL (7.5-11.2); Nucleated Red Blood Cells % 0.1 %/100WBC (0.0-0.8); Platelet Count 131 10^3/uL (150-450); Red Cell Distribution Width 12.7 % (12-17); White Blood Count 7.4 10^3/uL (3.8-11.8)
[2023-11-11 04:32] LABS: Calcium 7.9 mg/dL (8.6-10.3); Creatinine, Serum 0.63 mg/dL (0.51-0.95); Magnesium 1.8 mg/dL (1.9-2.7); Potassium 3.7 mmol/L (3.5-5.0)
[2023-11-11] MEDS: Cholecalciferol (VIT D3) 1,000 unit TAB PO SCH (08:04)
[2023-11-11] MEDS: Multivitamins/Minerals TAB PO SCH (08:04)
[2023-11-11] MEDS: Pantoprazole VIAL 40 MG VIAL IV SCH (08:04)
[2023-11-11 12:21] VITALS: BP 123/79
== END 2023-11-11 13:39 | disposition home or self-care (01) | DRG 54 ==
LOC: ED 17:53 → EDHOLD 21:43 → SUATTDRO 21:43 → ICU 22:24
PROVIDERS: ADMIT Internal Medicine; ATTEND Internal Medicine Pulmonary Disease